=== PATIENT | male | born 1960 | race Caucasian/White ===

== ENCOUNTER 2022-10-28 19:30 | Inpatient (IN) | payer MEDICAID, SELFPAY ==
[2022-10-28] VITALS (10 sets, daily range): BP systolic 150–175; BP diastolic 83–98; PULSE 71–119; RESP 15–26; TEMP 36.9–37.4; O2SAT 75–94; BMI 29.2; BMI 30.1
--- NOTE | 2022-10-28 19:43 | XRR_ITS ---
PROCEDURE INFORMATION: Exam: XR Chest Exam date and time: 10/28/2022 7:49 PM Age: 61 years old Clinical indication: Shortness of breath; Additional info: SOB TECHNIQUE: Imaging protocol: Radiologic exam of the chest. Views: 1 view. COMPARISON: No relevant prior studies available. FINDINGS: Lungs: Hazy asymmetric right upper lobe airspace opacification. Diffuse reticular changes of pulmonary interstitium with generalized prominence. Pleural spaces: Unremarkable. No pleural effusion. No pneumothorax. Heart/Mediastinum: Unremarkable. No cardiomegaly. Bones/joints: Unremarkable. XR/XR chest 1V portable [id number] IMPRESSION: Right upper lobe airspace disease suspicious for bronchopneumonia. Radiographic follow-up recommended.
--- NOTE | 2022-10-28 19:47 | W.ED.SOB ---
HPI - SOB/Dyspnea General: Chief Complaint: Shortness of Breath/Dyspnea Stated Complaint: SOB\High Blood Pressure Time Seen by Provider: 10/28/22 19:40 Source: patient Mode of arrival: ambulatory Limitations: no limitations History of Present Illness: HPI Narrative: 61-year-old male states that he has been having cough congestion low-grade fevers and shortness of breath over the last 4 days he states he thought he may have the flu he states today his dyspnea is worsened patient's pulse ox is 75% here on room air no history of lung issues is a longtime smoker he denies any chest pain denies any vomiting or diarrhea. Associated symptoms: Deny abdominal pain, chest pain, fever(s), nausea or vomiting Review of Systems Const: Denies: fever(s), chills, body aches or change in appetite Eyes: Denies: blurry vision or eye discomfort ENMT: Denies: throat pain or dental pain Card: Denies: chest pain Resp: Reports: dyspnea and non-productive cough GI: Denies: abdominal pain, nausea, vomiting or diarrhea : Denies: dysuria Musc: Denies: neck pain or back pain Skin/Breast: Denies: rash Neuro: Denies: headache(s) Psych: Denies: depression Monroe/Lymph: Denies: easy bruising All/Imm: Denies: urticaria PFSH ED PFSH: Medical History (Updated 10/28/22 @ 21:20 by Christopher Brock MD) No pertinent past medical history Social History (Updated 10/28/22 @ 19:47 by Christopher Brock MD) Smoking and tobacco status: current every day smoker Physical Exam Const: COMMON NORMALS: patient oriented x3 GENERAL APPEARANCE: in distress HENMT: COMMON NORMALS: normocephalic and atraumatic HEAD & SCALP: normocephalic and atraumatic Eye: COMMON NORMALS: Equal, round and reactive pupils present and EOMs intact bilaterally PUPIL: Yes Equal, round and reactive pupils present Neck/C-Spine: COMMON NORMALS: full ROM and supple Chest: COMMONS NORMALS: normal inspection of the chest and normal palpation of entire chest wall Resp: COMMON NORMALS: No retractions and No use of accessory muscles EFFORT & INSPECTION: Yes respiratory distress AUSCULTATION: crackles Cardio: COMMON NORMALS: regular rate, regular rhythm and No murmurs present (Cardio) RATE: regular rate RHYTHM: regular rhythm GI: COMMON NORMALS: Normal to inspection, nondistended, normoactive bowel sounds present, Soft to palpation, non-tender and no masses PALPATION: Yes Soft to palpation Extremity: COMMON NORMALS: normal to inspection and full ROM Neuro: COMMON NORMALS: patient oriented x3, moves all extremities and no focal motor deficits Psych: COMMON NORMALS: mental status grossly normal, Normal thought process present and cooperative THOUGHT PROCESS: Normal thought process present Skin: COMMON NORMALS: no rashes or lesions noted and no wounds GENERAL SKIN EXAM: no rashes or lesions noted Course Vital Signs: Vital signs: Vital Signs Temperature 99.3 F 10/28/22 19:38 Pulse Rate 71 10/28/22 20:41 Respiratory Rate 19 H 10/28/22 20:41 Blood Pressure 150/83 10/28/22 20:41 Pulse Oximetry 91 10/28/22 20:41 Oxygen Delivery Me thod 10/28/22 20:41 Oxygen Flow Rate 4 10/28/22 20:41 MDM - SOB/Dyspnea Medical Decision Making Patient presents here with a right upper lobe pneumonia along with hypoxia he has no signs of sepsis spoke to hospitalist will start on antibiotics admitted this time. Lab Data 10/28/22 19:50 10/28/22 19:50 Labs/Radiology: Radiology Impressions Chest X-Ray 10/28/22 19:43 IMPRESSION: Right upper lobe airspace disease suspicious for bronchopneumonia. Radiographic follow-up recommended. Laboratory Results WBC 10.0 10^3/uL (4.0-10.0) 10/28/22 19:50 RBC 4.63 10^6/uL (4.1-5.3) 10/28/22 19:50 Hgb 14.9 g/dL (11.7-16.6) 10/28/22 19:50 Hct 43.5 % (42.0-52.0) 10/28/22 19:50 MCV 94.0 fl (80-94) 10/28/22 19:50 MCH 32.2 pg (28.0-34.0) 10/28/22 19:50 MCHC 34.3 g/dL (30.0-36.0) 10/28/22 19:50 RDW 13.6 % (12.1-15.1) 10/28/22 19:50 Plt Count 235 10^3/cmm (130-400) 10/28/22 19:50 MPV 11.0 fL (7.4-10.4) H 10/28/22 19:50 Neut % (Auto) 64.0 % 10/28/22 19:50 Lymph % (Auto) 18.0 % 10/28/22 19:50 [place] % (Auto) 16.0 % 10/28/22 19:50 Eos % (Auto) 0.2 % 10/28/22 19:50 Baso % (Auto) 0.7 % 10/28/22 19:50 Neut # (Auto) 6.41 10^3/uL (1.8-7.7) 10/28/22 19:50 Lymph # (Auto) 1.8 10^3/uL (0.8-4.8) 10/28/22 19:50 [place] # (Auto) 1.6 10^3/uL (0.2-0.9) H 10/28/22 19:50 Eos # (Auto) 0.0 10^3/uL (0.0-0.8) 10/28/22 19:50 Baso # (Auto) 0.1 10^3/uL (0.0-0.1) 10/28/22 19:50 Nucleated RBC % (auto) 0 % 10/28/22 19:50 Nucleated RBCs # 0.0 /100WBC 10/28/22 19:50 PT 13.70 SECONDS (12.1-14.9) 10/28/22 19:50 INR 1.02 (0.8-1.2) 10/28/22 19:50 Sodium 133 mmol/L (136-145) L 10/28/22 19:50 Potassium 3.4 mmol/L (3.5-5.1) L 10/28/22 19:50 Chloride 89 mmol/L (98-107) L 10/28/22 19:50 Carbon Dioxide 32 mmol/L (22-29) H 10/28/22 19:50 Anion Gap 15.4 (5-19) 10/28/22 19:50 BUN 21 mg/dL (8-23) 10/28/22 19:50 Creatinine 0.9 mg/dL (0.7-1.2) 10/28/22 19:50 GFR Calculation 86.1 mL/min (90-130) L 10/28/22 19:50 Glucose 121 mg/dL (65-115) H 10/28/22 19:50 Calculated Osmolality 280 mOsm/kg (285-295) L 10/28/22 19:50 Calcium 9.5 mg/dL (8.5-10.5) 10/28/22 19:50 Total Bilirubin 1.2 mg/dL (0.15-1.2) 10/28/22 19:50 AST 115 U/L (0-40) H 10/28/22 19:50 ALT 123 U/L (0-41) H 10/28/22 19:50 Alkaline Phosphatase 112 U/L (40-130) 10/28/22 19:50 NT-Pro-B Natriuret Pep 99 pg/mL (0-125) 10/28/22 19:50 Total Protein 8.0 g/dL (6.6-8.7) 10/28/22 19:50 Albumin 3.8 g/dL (3.5-5.2) 10/28/22 19:50 Globulin 4.2 g/dL (1.3-4.6) 10/28/22 19:50 Influenza Type A Ag Negative (Negative) 10/28/22 19:55 Influenza Type B Ag Negative (Negative) 10/28/22 19:55 SARS-CoV-2 Ag (Rapid) negative (Negative) 10/28/22 19:55 Discharge Plan Discharge Patient Disposition: Admitted As Inpatient Clinical Impression: Community acquired pneumonia, Respiratory failure with hypoxia Coding Level of 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
[2022-10-28 20:08] LABS: Basophils # 0.1 10^3/uL (0.0-0.1); Basophils % 0.7 %; Eosinophils % 0.2 %; Hematocrit 43.5 % (42.0-52.0); Hemoglobin 14.9 g/dL (11.7-16.6); Lymphocytes # 1.8 10^3/uL (0.8-4.8); Mean Corpuscular HGB Conc 34.3 g/dL (30.0-36.0); Mean Corpuscular Hemoglobin 32.2 pg (28.0-34.0); Monocytes # 1.6 10^3/uL (0.2-0.9); Neutrophils # 6.41 10^3/uL (1.8-7.7); Nucleated Red Blood Cells % 0 %; Platelet Count 235 10^3/cmm (130-400); Red Blood Count 4.63 10^6/uL (4.1-5.3); Red Cell Distribution Width 13.6 % (12.1-15.1)
[2022-10-28] MEDS: ipratropium-albuterol 3 mL Neb INHALATION (20:11)
[2022-10-28 20:21] LABS: INR 1.02 (0.8-1.2)
[2022-10-28] MEDS: cefTRIAXone 1,000 MG in sodium chloride 0.9% (plus) 50 ML 100 MG IV (20:24)
--- NOTE | 2022-10-28 20:24 | PC.NURSE ---
blood cultures x2 drawn prior to ABX start
[2022-10-28 20:25] LABS: SARS Covid-2 Antigen negative (Negative)
[2022-10-28] MEDS: azithromycin 500 MG in sodium chloride 0.9% 250 ML 250 MG IV (20:25)
[2022-10-28 20:36] LABS: Alanine Aminotransferase 123 U/L (0-41); Albumin Level 3.8 g/dL (3.5-5.2); Alkaline Phosphatase 112 U/L (40-130); Anion Gap 15.4 (5-19); Aspartate Amino Transferase 115 U/L (0-40); Blood Urea Nitrogen 21 mg/dL (8-23); Calcium 9.5 mg/dL (8.5-10.5); Carbon Dioxide 32 mmol/L (22-29); Chloride 89 mmol/L (98-107); Creatinine Clr Calc Pharmacy 102.8168; Globulin 4.2 g/dL (1.3-4.6); Glomerular Filtration Rate 86.1 mL/min (90-130); Glucose 121 mg/dL (65-115); NT Pro B Type Natriuretic Pept 99 pg/mL (0-125); Osmolality Calculated 280 mOsm/kg (285-295); Potassium 3.4 mmol/L (3.5-5.1); Sodium 133 mmol/L (136-145); Total Bilirubin 1.2 mg/dL (0.15-1.2)
[2022-10-28 20:42] LABS: Influenza A by IFA Negative (Negative); Influenza B by IFA Negative (Negative)
[2022-10-28] MEDS: morphine 4 mg/mL SDV 1 mL IVP (21:31)
[2022-10-28] MEDS: ondansetron 2 mg/ML SDV 2 mL 4 MG IVP (21:31)
--- NOTE | 2022-10-28 21:39 | P.HP_ITS ---
Providers/Chief Complaint Admitting Physician: Dm Horner MD Chief Complaint: SOB\High Blood Pressure History of Present Illness Benton Webb is a 61 year old male who does not have any medical history other than hypertension, takes amlodipine and lisinopril, presented with chief plaint of worsening of shortness of breath. For last 1 week he has been experience generalized weakness, fatigue, shortness of breath, sputum production with cough, he is not vaccinated for flu or COVID-19. He has not noticed any chest pain, or vomiting. He is endorsing nausea, lack of appetite, malaise. Patient is stating that he has been bedbound for the last 7 days and he has not eaten very well. T-max 101. His is also experiencing similar symptoms. In the ER chest x-ray showed right upper lobe pneumonia, he is sensate cardiac, clinically dehydrated I have requested D-dimer which came back high Will request CTA chest rule out PE He has been given azithromycin and ceftriaxone Currently requiring 4 L of oxygen which is new requirement for him He smokes 2 packs of cigarettes every day no use of alcohol on daily basis COVID antigen negative I would like to request PCR Review of Systems Const: Reports: fever(s), chills, body aches and fatigue Eyes: Denies: change in vision ENMT: Denies: throat pain Card: Denies: chest pain Resp: Reports: dyspnea and productive cough GI: Denies: abdominal pain : Denies: flank pain Musc: Denies: neck pain Skin/Breast: Denies: rash Neuro: Reports: headache(s) Psych: Reports: anxiety Endo: Denies: polyuria Monroe/Lymph: Denies: easy bruising All/Imm: Denies: urticaria Medications/Allergies Allergies Allergy/AdvReac Type Severity Reaction Status Date / Time No Known Allergies Allergy Verified 10/28/22 19:37 PFSH Acute PFSH: Medical History Hypertension No pertinent past medical history Surgical History History of skin surgery Family History Denies family history of CAD (coronary artery disease) Social History Smoking and tobacco status: current every day smoker Vitals/I&O/Wt Last Vital Signs Temp 99.3 F 10/28/22 19:38 Pulse 110 H 10/28/22 21:32 Resp 20 H 10/28/22 21:32 BP 160/94 10/28/22 21:32 Pulse Ox 94 10/28/22 21:32 O2 Del Method 10/28/22 21:32 O2 Flow Rate 4 10/28/22 21:32 10/28/22 10/28/22 10/28/22 06:59 14:59 22:59 Intake Total 300 / 300 Balance 300 / 300 Weight last 48 hrs Weight 95.254 kg Physical Exam Narrative: Pleasant cooperative male Currently on 4 L of oxygen No acute respiratory distress Bilateral breath sounds with rhonchi No active wheezing S1, S2 sinus tachycardia Clinically dehydrated Abdomen soft No signs of edema Nonfocal neuro exam Pleasant and cooperative Data 10/28/22 19:50 10/28/22 19:50 Micro: Microbiology 10/28/22 20:06 Blood Culture - Preliminary Blood SPECIMEN COLLECTED 10/28/22 19:50 Blood Culture - Preliminary Blood SPECIMEN COLLECTED A&P Assessment and plan (1) Community acquired pneumonia: (2) Respiratory failure with hypoxia: Plan Community-acquired pneumonia No signs of sepsis Tachycardia noted high D-dimer Requested CTA chest rule out PE Start ceftriaxone azithromycin Most likely patient has underlying COPD we will follow-up with CT results Will need outpatient pulmonary follow-up Smokes 2 packs of cigarettes every day I would request COVID PCR, viral antigen panel is negative Lack of appetite, hyponatremia, hypokalemia, will give gentle fluid hydration Cardiac diet History of hypertension we will add amlodipine to lisinopril Full code DVT prophylaxis Lovenox Attestations Medical Necessity Statement*: Anticipating more than 2 midnights for management of hypoxia related to pneumonia Time Spent in Patient Care: 40 Coding Level of 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
[2022-10-28 22:13] LABS: D Dimer 3.69 ug/mIFEU (0-0.59)
--- NOTE | 2022-10-28 22:58 | CTR_ITS ---
PROCEDURE INFORMATION: Exam: CTA Chest With Contrast Exam date and time: 10/29/2022 12:15 AM Age: 61 years old Clinical indication: Abnormal findings; Abnormal diagnostic tests; Elevated d-dimer; Cough and shortness of breath; Patient HX: Cough with SOB. Elevated d dimer. ; Additional info: Pe TECHNIQUE: Imaging protocol: Computed tomographic angiography of the chest with contrast. 3D rendering (Not supervised by radiologist): MIP and/or 3D reconstructed images were created by the technologist. Radiation optimization: All CT scans at this facility use at least one of these dose optimization techniques: automated exposure control; mA and/or kV adjustment per patient size (includes targeted exams where dose is matched to clinical indication); or iterative reconstruction. Contrast material: OMNI 350; Contrast volume: 175 ml; Contrast route: INTRAVENOUS (IV); COMPARISON: CR (CHEST, ) 10/28/2022 7:49 PM RADIATION DOSE METRICS: Total DLP (mGy-cm): 888.35 FINDINGS: Pulmonary arteries: Normal. No pulmonary emboli. Aorta: Unremarkable. No aortic aneurysm. No aortic dissection. Lungs: Scattered patchy ground-glass attenuation changes of the lung parenchyma bilaterally with right upper lobe predominance. Scattered tree-in-bud tiny pulmonary nodular opacities widely distributed in both lungs. Mild severity centrilobular emphysema. No central airway obstruction. Mild diffuse bronchial wall thickening. No peripheral honeycombing. Pleural spaces: Unremarkable. No pneumothorax. No pleural effusion. Heart: Unremarkable. No cardiomegaly. No pericardial effusion. Mediastinal space: Unremarkable thoracic esophagus. Lymph nodes: Increase number of shotty lymph nodes throughout the mediastinum. Liver: Small low-attenuation circumscribed liver lesion in the right hepatic dome measures 8 mm. Additional 12 mm low-attenuation lesion in the central right hepatic lobe. Benign cysts are favored. Bones/joints: Unremarkable. No acute fracture. Soft tissues: Unremarkable. CT/CT angio chest PE protcl [id number] IMPRESSION: 1. Nonspecific multifocal pneumonia changes throughout the lungs. 2. Negative for pulmonary embolism.
[2022-10-28] MEDS: enoxaparin 40 mg/0.4 mL Syringe SUBCUT (23:00)
[2022-10-28 23:02] LABS: Estmated Average Glucose 148; Hemoglobin A1C 6.8 % (4.0-6.0)
[2022-10-28] MEDS: amlodipine 10 mg Tablet PO (23:17)
[2022-10-28] MEDS: sodium chlor 0.9% + KCl 20 mEq 20 MEQ/1,000 ML BAG 75 MEQ IV (23:17)
[2022-10-28] MEDS: morphine IR 15 mg Tablet PO (23:54)
[2022-10-29] VITALS (9 sets, daily range): BP systolic 123–149; BP diastolic 67–84; PULSE 66–95; RESP 15–20; TEMP 36.6–36.8; O2SAT 94–97
[2022-10-29] MEDS: iohexol 350 mg/mL 500 mL Btl (per mL) IV (00:34)
[2022-10-29 04:12] LABS: Anion Gap 14.5 (5-19); Blood Urea Nitrogen 19 mg/dL (8-23); Calcium 8.9 mg/dL (8.5-10.5); Carbon Dioxide 29 mmol/L (22-29); Chloride 89 mmol/L (98-107); Glomerular Filtration Rate 137.4 mL/min (90-130); Glucose 184 mg/dL (65-115); Magnesium 2.3 mg/dL (1.7-2.3); Osmolality Calculated 275 mOsm/kg (285-295); Phosphorus 3.3 mg/dL (2.5-4.5); Potassium 3.5 mmol/L (3.5-5.1); Sodium 129 mmol/L (136-145)
[2022-10-29 04:19] LABS: Creatinine Clr Calc Pharmacy 151.6911
[2022-10-29 04:29] LABS: Basophils % 0.4 %; Eosinophils % 0.1 %; Hematocrit 39.3 % (42.0-52.0); Hemoglobin 13.3 g/dL (11.7-16.6); Lymphocytes # 1.1 10^3/uL (0.8-4.8); Mean Corpuscular HGB Conc 33.8 g/dL (30.0-36.0); Mean Corpuscular Hemoglobin 31.7 pg (28.0-34.0); Mean Corpuscular Volume 93.6 fl (80-94); Mean Platelet Volume 11.8 fL (7.4-10.4); Monocytes # 0.5 10^3/uL (0.2-0.9); Monocytes % 5.1 %; Neutrophils # 7.44 10^3/uL (1.8-7.7); Neutrophils % 80.8 %; Nucleated Red Blood Cells % 0 %; Platelet Count 218 10^3/cmm (130-400); Red Cell Distribution Width 13.6 % (12.1-15.1); White Blood Count 9.2 10^3/uL (4.0-10.0)
--- NOTE | 2022-10-29 05:50 | PC.NURSE ---
18G IV to R AC infiltrated at this time. IV catheter removed w/tip intact and pressure drsg applied. 22G IV started to right hand x 1 attempt, successful, good blood return noted, and flushes w/ease. IV fluids restarted.
[2022-10-29 06:04] LABS: Vitamin B12 1011 pg/mL (232-1245)
[2022-10-29 06:05] LABS: Slide Review Slide Review Perform
[2022-10-29] MEDS: azithromycin 250 mg Tablet 500 MG PO (08:28)
[2022-10-29] MEDS: lisinopril 20 mg Tablet PO (08:28)
[2022-10-29] MEDS: sennosides-docusate Tablet 1 TAB PO (08:28)
[2022-10-29] MEDS: amlodipine 10 mg Tablet PO (08:28)
[2022-10-29] MEDS: morphine IR 15 mg Tablet PO ×2 (11:14→20:58)
[2022-10-29] MEDS: sodium chlor 0.9% + KCl 20 mEq 20 MEQ/1,000 ML BAG 75 MEQ IV (14:40)
--- NOTE | 2022-10-29 15:17 | P.PN_ITS ---
Subjective Subjective: Overnight labs and H&P reviewed. Patient is currently on 4 L/min supplemental oxygen saturating 95%. Room air as noted on patient's chart is an error. States that his dyspnea is slightly improved this morning. He has been afebrile. Medications: Reviewed: Yes Vitals/I&O/Wt Last Vital Signs Temp 98.0 F 10/29/22 12:00 Pulse 66 10/29/22 12:00 Resp 16 10/29/22 12:00 BP 128/71 10/29/22 12:00 Pulse Ox 95 10/29/22 12:00 O2 Del Method 10/29/22 12:00 O2 Flow Rate 2 10/29/22 08:00 10/29/22 10/29/22 10/29/22 06:59 14:59 22:59 Intake Total 240 / 240 Output Total 150 / 150 Balance -150 / 150 240 / 240 Weight last 48 hrs Weight 95.283 kg Weight 95.254 kg Physical Exam Narrative: General: No acute distress, AO x3 HEENT: PERRLA, pupils bilaterally equal and reactive, pallors not present Chest: Normal vesicular breath sounds, no added sounds, equal good air entry bilaterally CVS: S1-S2 regular, no murmurs, no tachycardia, no gallops, no rubs Abdomen: Soft, nontender, no organomegaly, bowel sounds present Neuro: No focal deficits, no facial deformity, AO x3, power 5/5 in all limbs Extremities: no edema, clubbing, cyanosis or rash Data 10/29/22 02:36 10/29/22 02:36 Micro: Microbiology 10/28/22 22:42 MRSA Culture - Final Nose 10/29/22 01:17 Gram Stain - Final Sputum - Expectorated Sputum 10/29/22 01:17 Bacterial Antigens - Final Urine,Clean Catch 10/28/22 20:06 Blood Culture - Preliminary Blood SPECIMEN COLLECTED 10/28/22 19:50 Blood Culture - Preliminary Blood SPECIMEN COLLECTED A&P Assessment and plan (1) Community acquired pneumonia: (2) Respiratory failure with hypoxia: Plan Community-acquired pneumonia CTA negative for PE, shows B/L multifocal pneumonia Continue ceftriaxone and azithromycin pending COVID PCR, influenza Ag negative Negative urine bacterial antigen. Pending sputum culture and gram stain, negative MRSA PCR. 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
[2022-10-29 17:21] LABS: Adenovirus Not Detected (NOT DETECT); Chlamydia Pneumoniae Not Detected (NOT DETECT); Coronavirus 229E,HKU1,NL63,OC4 Not Detected (NOT DETECT); Human Metapneumovirus Not Detected (NOT DETECT); Human Rhinovirus/Enterovirus Not Detected (NOT DETECT); Influenza A Detected (NOT DETECT); Influenza A H1 Not Detected (NOT DETECT); Influenza A H1-2009 Detected (NOT DETECT); Influenza A H3 Not Detected (NOT DETECT); Influenza B Not Detected (NOT DETECT); Mycoplasma Pneumoniae Not Detected (NOT DETECT); Parainfluenza Virus Type 1 Not Detected (NOT DETECT); Parainfluenza Virus Type 2 Not Detected (NOT DETECT); Parainfluenza Virus Type 3 Not Detected (NOT DETECT); Parainfluenza Virus Type 4 Not Detected (NOT DETECT); Respiratory Syncytial Virus A Not Detected (NOT DETECT); Respiratory Syncytial Virus B Not Detected (NOT DETECT); SARS-COV-2 Not Detected (NOT DETECT)
[2022-10-29] MEDS: cefTRIAXone 1,000 MG in sodium chloride 0.9% (plus) 50 ML 100 MG IV (20:00)
[2022-10-29] MEDS: enoxaparin 40 mg/0.4 mL Syringe SUBCUT (23:04)
[2022-10-30] VITALS (9 sets, daily range): BP systolic 126–168; BP diastolic 71–94; PULSE 81–103; RESP 15–20; TEMP 36.3–36.8; O2SAT 91–97
[2022-10-30] MEDS: sodium chlor 0.9% + KCl 20 mEq 20 MEQ/1,000 ML BAG 75 MEQ IV (01:35)
[2022-10-30] MEDS: morphine IR 15 mg Tablet PO (03:01)
[2022-10-30] MEDS: amlodipine 10 mg Tablet PO (09:33)
[2022-10-30] MEDS: sennosides-docusate Tablet 1 TAB PO (09:33)
[2022-10-30] MEDS: lisinopril 20 mg Tablet PO (09:33)
[2022-10-30] MEDS: azithromycin 250 mg Tablet 500 MG PO (09:33)
--- NOTE | 2022-10-30 14:43 | P.PN_ITS ---
Subjective Subjective: Patient noted to have wheezing today. This morning he was attempted to be weaned down to 2 L/min, however desaturated in the low 80s so had to be placed back on 40 L/min supplemental O2. He is not feeling any better, more tired today. Influenza A PCR returned positive yesterday. Medications: Reviewed: Yes Vitals/I&O/Wt Last Vital Signs Temp 97.3 F L 10/30/22 12:00 Pulse 103 H 10/30/22 12:00 Resp 16 10/30/22 12:00 BP 139/83 10/30/22 12:00 Pulse Ox 94 10/30/22 12:00 O2 Del Method 10/30/22 12:00 O2 Flow Rate 4 10/30/22 08:00 10/29/22 10/30/22 10/30/22 22:59 06:59 14:59 Intake Total 390 / 1630 1178.75 / 2808.75 530 / 530 Output Total 700 / 700 650 / 1350 Balance -310 / 930 528.75 / 1458.75 530 / 530 Weight last 48 hrs Weight 95.283 kg Weight 95.254 kg Physical Exam Narrative: General: No acute distress, AO x3 HEENT: PERRLA, pupils bilaterally equal and reactive, pallors not present Chest: Wheezing to auscultation bilaterally all areas CVS: S1-S2 regular, no murmurs, no tachycardia, no gallops, no rubs Abdomen: Soft, nontender, no organomegaly, bowel sounds present Neuro: No focal deficits, no facial deformity, AO x3, power 5/5 in all limbs Data 10/29/22 02:36 10/29/22 02:36 Micro: Microbiology 10/28/22 20:06 Blood Culture - Preliminary Blood NEGATIVE TO DATE 10/28/22 19:50 Blood Culture - Preliminary Blood NEGATIVE TO DATE 10/28/22 22:42 MRSA Culture - Final Nose A&P Assessment and plan (1) Community acquired pneumonia: (2) Respiratory failure with hypoxia: (3) Influenza A with pneumonia: Plan Patient presenting with complaints of fever chills shortness of breath found to have influenza A pneumonia. CTA negative for PE, shows B/L multifocal pneumonia Started on Tamiflu 75 mg p.o. twice daily today Cannot rule out the possibility of superadded infection Continue ceftriaxone and azithromycin Negative urine bacterial antigen. Pending sputum culture and gram stain, negative MRSA PCR. Blood cx pending, negative so far Lack of appetite, hyponatremia, hypokalemia, discontinue IV fluids today as concern for fluid overload. Recheck sodium with a.m. labs. Encourage p.o. intake Cardiac diet Bilateral wheezing on exam today, likely also with bronchitis. Start scheduled nebulization with DuoNeb, add budesonide inhalation. Short course of methylprednisolone 40 mg IV every 12 hours. Blood pressure currently well controlled Full code DVT prophylaxis Lovenox Attestations Medical Necessity Statement*: Influenza A pneumonia, possibility of superadded bacterial infection, IV antibiotics, close monitoring of respiratory status. 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
[2022-10-30] MEDS: ipratropium-albuterol 3 mL Neb INHALATION ×2 (16:19→20:31)
[2022-10-30] MEDS: oseltamivir phosphate 75 mg Capsule PO (18:13)
[2022-10-30] MEDS: cefTRIAXone 1,000 MG in sodium chloride 0.9% (plus) 50 ML 100 MG IV (20:03)
[2022-10-30] MEDS: budesonide 0.5 mg/2 mL Neb INHALATION (20:31)
[2022-10-30] MEDS: acetaminophen 500 mg Tablet PO (20:46)
[2022-10-30] MEDS: enoxaparin 40 mg/0.4 mL Syringe SUBCUT (23:12)
[2022-10-31] VITALS (11 sets, daily range): BP systolic 153–175; BP diastolic 86–97; PULSE 80–93; RESP 16–21; TEMP 36.3–36.6; O2SAT 90–98
[2022-10-31] MEDS: acetaminophen 500 mg Tablet PO (01:39)
[2022-10-31] MEDS: ipratropium-albuterol 3 mL Neb INHALATION ×3 (02:54→08:40)
[2022-10-31 05:02] LABS: Alanine Aminotransferase 276 U/L (0-41); Albumin Level 3.4 g/dL (3.5-5.2); Alkaline Phosphatase 106 U/L (40-130); Anion Gap 14.6 (5-19); Aspartate Amino Transferase 104 U/L (0-40); Blood Urea Nitrogen 14 mg/dL (8-23); Calcium 9.2 mg/dL (8.5-10.5); Carbon Dioxide 32 mmol/L (22-29); Chloride 94 mmol/L (98-107); Globulin 3.7 g/dL (1.3-4.6); Glucose 219 mg/dL (65-115); Osmolality Calculated 291 mOsm/kg (285-295); Potassium 3.6 mmol/L (3.5-5.1); Sodium 137 mmol/L (136-145); Total Bilirubin 0.3 mg/dL (0.15-1.2); Total Protein 7.1 g/dL (6.6-8.7)
[2022-10-31 05:13] LABS: Basophils % 0.3 %; Eosinophils % 0.1 %; Hematocrit 40.4 % (42.0-52.0); Hemoglobin 13.4 g/dL (11.7-16.6); Lymphocytes # 1.7 10^3/uL (0.8-4.8); Mean Corpuscular HGB Conc 33.2 g/dL (30.0-36.0); Mean Corpuscular Hemoglobin 32.1 pg (28.0-34.0); Mean Corpuscular Volume 96.7 fl (80-94); Mean Platelet Volume 11.5 fL (7.4-10.4); Monocytes # 0.6 10^3/uL (0.2-0.9); Monocytes % 4.6 %; Neutrophils # 9.71 10^3/uL (1.8-7.7); Neutrophils % 75.3 %; Nucleated Red Blood Cells % 0 %; Platelet Count 352 10^3/cmm (130-400); Red Blood Count 4.18 10^6/uL (4.1-5.3); Red Cell Distribution Width 13.5 % (12.1-15.1); White Blood Count 12.9 10^3/uL (4.0-10.0)
[2022-10-31] MEDS: lisinopril 20 mg Tablet PO (08:36)
[2022-10-31] MEDS: amlodipine 10 mg Tablet PO (08:36)
[2022-10-31] MEDS: oseltamivir phosphate 75 mg Capsule PO (08:37)
[2022-10-31] MEDS: azithromycin 250 mg Tablet 500 MG PO (08:37)
[2022-10-31] MEDS: sennosides-docusate Tablet 1 TAB PO (08:37)
[2022-10-31] MEDS: budesonide 0.5 mg/2 mL Neb INHALATION (08:40)
--- NOTE | 2022-10-31 13:23 | P.DS_ITS ---
Discharge Providers Date of Admission: 10/28/22 21:22 Date of Discharge: October 31, 2022 Attending Provider at Admission: Dm Horner MD Attending Provider at Discharge: Jena Banerjee MD Diagnoses at Discharge Discharge Diagnosis (1) Community acquired pneumonia: Status: Acute (2) Respiratory failure with hypoxia: Status: Acute (3) Influenza A with pneumonia: Status: Acute Reason for Visit Reason for Visit: SOB\High Blood Pressure Brief History: Taken from H&P : Benton Webb is a 61 year old male who does not have any medical history other than hypertension, takes amlodipine and lisinopril, presented with chief plaint of worsening of shortness of breath.? For last 1 week he has been experience generalized weakness, fatigue, shortness of breath, sputum production with cough, he is not vaccinated for flu or COVID-19.? He has not noticed any chest pain, or vomiting.? He is endorsing nausea, lack of appetite, malaise.? Patient is stating that he has been bedbound for the last 7 days and he has not eaten very well.? T-max 101.? His is also experiencing similar symptoms. Hospital Course Hospital Course Patient was admitted to the hospital with an overall impression of community- acquired pneumonia. CTA of his chest was negative for PE but did show bilateral multifocal pneumonia. He was started on ceftriaxone and azithromycin empirically, eventually his influenza A PCR came back positive (initially this was negative). Discharge impression is that of influenza A pneumonia with possibility of superadded bacterial infection. Patient was treated with IV antibiotics, steroids and scheduled nebulization needed to be added as patient developed wheezing on October 30, 2022, likely as a result of bronchitis from his acute viral illness. He did well with these interventions. Initially upon presentation he required 4 L/min supplemental O2. Home O2 evaluation was performed today and patient did not qualify for supplemental O2. His O2 sat remained above 90% on room air both at rest and ambulation. He is feeling symptomatically improved today. Physical Exam Narrative: General: No acute distress, AO x3 HEENT: PERRLA, pupils bilaterally equal and reactive, pallors not present Chest: Normal vesicular breath sounds, no added sounds, equal good air entry bilaterally CVS: S1-S2 regular, no murmurs, no tachycardia, no gallops, no rubs Abdomen: Soft, nontender, no organomegaly, bowel sounds present Neuro: No focal deficits, no facial deformity, AO x3, power 5/5 in all limbs Discharge Data Studies Completed and Pending Completed Studies During Hospitalization Category Date Time Status CTA PE [CT angio chest PE protcl [id number]] Stat Cat Scan 10/28/22 22:58 Completed XR chest 1V portable [id number] Stat Exams 10/28/22 19:43 Completed Pending at discharge Category Date Time Status Blood Culture Stat Lab 10/28/22 20:06 Results Sputum Culture and Gram Stain Stat Lab 10/29/22 01:17 Results Radiology Impressions Chest X-Ray 10/28/22 19:43 IMPRESSION: Right upper lobe airspace disease suspicious for bronchopneumonia. Radiographic follow-up recommended. Chest CTA 10/28/22 22:58 IMPRESSION: 1. Nonspecific multifocal pneumonia changes throughout the lungs. 2. Negative for pulmonary embolism. Laboratory Results WBC 12.9 10^3/uL (4.0-10.0) H 10/31/22 03:19 RBC 4.18 10^6/uL (4.1-5.3) 10/31/22 03:19 Hgb 13.4 g/dL (11.7-16.6) 10/31/22 03:19 Hct 40.4 % (42.0-52.0) L 10/31/22 03:19 MCV 96.7 fl (80-94) H 10/31/22 03:19 MCH 32.1 pg (28.0-34.0) 10/31/22 03:19 MCHC 33.2 g/dL (30.0-36.0) 10/31/22 03:19 RDW 13.5 % (12.1-15.1) 10/31/22 03:19 Plt Count 352 10^3/cmm (130-400) 10/31/22 03:19 MPV 11.5 fL (7.4-10.4) H 10/31/22 03:19 Neut % (Auto) 75.3 % 10/31/22 03:19 Lymph % (Auto) 13.0 % 10/31/22 03:19 [place] % (Auto) 4.6 % 10/31/22 03:19 Eos % (Auto) 0.1 % 10/31/22 03:19 Baso % (Auto) 0.3 % 10/31/22 03:19 Neut # (Auto) 9.71 10^3/uL (1.8-7.7) H 10/31/22 03:19 Lymph # (Auto) 1.7 10^3/uL (0.8-4.8) 10/31/22 03:19 [place] # (Auto) 0.6 10^3/uL (0.2-0.9) 10/31/22 03:19 Eos # (Auto) 0.0 10^3/uL (0.0-0.8) 10/31/22 03:19 Baso # (Auto) 0.0 10^3/uL (0.0-0.1) 10/31/22 03:19 Nucleated RBC % (auto) 0 % 10/31/22 03:19 Nucleated RBCs # 0.0 /100WBC 10/31/22 03:19 PT 13.70 SECONDS (12.1-14.9) 10/28/22 19:50 INR 1.02 (0.8-1.2) 10/28/22 19:50 D-Dimer 3.69 ug/mIFEU (0-0.59) H 10/28/22 19:50 Sodium 137 mmol/L (136-145) 10/31/22 03:19 Potassium 3.6 mmol/L (3.5-5.1) 10/31/22 03:19 Chloride 94 mmol/L (98-107) L 10/31/22 03:19 Carbon Dioxide 32 mmol/L (22-29) H 10/31/22 03:19 Anion Gap 14.6 (5-19) 10/31/22 03:19 BUN 14 mg/dL (8-23) 10/31/22 03:19 Creatinine 0.6 mg/dL (0.7-1.2) L 10/31/22 03:19 GFR Calculation 137.0 mL/min (90-130) H 10/31/22 03:19 Glucose 219 mg/dL (65-115) H 10/31/22 03:19 Estimat Average Glucose 148 10/28/22 19:50 Hemoglobin A1c 6.8 % (4.0-6.0) H 10/28/22 19:50 Calculated Osmolality 291 mOsm/kg (285-295) 10/31/22 03:19 Calcium 9.2 mg/dL (8.5-10.5) 10/31/22 03:19 Phosphorus 3.3 mg/dL (2.5-4.5) 10/29/22 02:36 Magnesium 2.3 mg/dL (1.7-2.3) 10/29/22 02:36 Total Bilirubin 0.3 mg/dL (0.15-1.2) 10/31/22 03:19 AST 104 U/L (0-40) H 10/31/22 03:19 ALT 276 U/L (0-41) H 10/31/22 03:19 Alkaline Phosphatase 106 U/L (40-130) 10/31/22 03:19 NT-Pro-B Natriuret Pep 99 pg/mL (0-125) 10/28/22 19:50 Total Protein 7.1 g/dL (6.6-8.7) 10/31/22 03:19 Albumin 3.4 g/dL (3.5-5.2) L 10/31/22 03:19 Globulin 3.7 g/dL (1.3-4.6) 10/31/22 03:19 Vitamin B12 1011 pg/mL (232-1245) 10/28/22 19:50 Procalcitonin 0.80 ng/mL (0-0.5) H 10/28/22 19:50 Nasal Influ A H1 2008 PCR Detected (NOT DETECT) A 10/28/22 22:42 Adenovirus (PCR) Not detected (NOT DETECT) 10/28/22 22:42 C. pneumoniae DNA (PCR) Not detected (NOT DETECT) 10/28/22 22:42 Coronavirus 229E (PCR) Cancelled 10/28/22 22:42 Coronavirus 229E (PCR) Not detected (NOT DETECT) 10/28/22 22:42 Human Metapneumovir PCR Not detected (NOT DETECT) 10/28/22 22:42 Influenza A (H1) PCR Not detected (NOT DETECT) 10/28/22 22:42 Influenza A (H3) PCR Not detected (NOT DETECT) 10/28/22 22:42 Influenza Type A Ag Negative (Negative) 10/28/22 19:55 Influenza Type A (PCR) Detected (NOT DETECT) A 10/28/22 22:42 Influenza Type B Ag Negative (Negative) 10/28/22 19:55 Influenza Type B (PCR) Not detected (NOT DETECT) 10/28/22 22:42 M. pneumoniae (PCR) Not detected (NOT DETECT) 10/28/22 22:42 Parainfluenza 1 (PCR) Not detected (NOT DETECT) 10/28/22 22:42 Parainfluenza 2 (PCR) Not detected (NOT DETECT) 10/28/22 22:42 Parainfluenza 3 (PCR) Not detected (NOT DETECT) 12 22:42 Parainfluenza 4 (PCR) Not detected (NOT DETECT) 10/28/22 22:42 RSV Type A (PCR) Not detected (NOT DETECT) 10/28/22 22:42 RSV Type B (PCR) Not detected (NOT DETECT) 10/28/22 22:42 Entero/Rhino (PCR) Not detected (NOT DETECT) 10/28/22 22:42 SARS-CoV-2 (PCR) Cancelled 10/28/22 22:42 SARS-CoV-2 (PCR) Not detected (NOT DETECT) 10/28/22 22:42 SARS-CoV-2 Ag (Rapid) negative (Negative) 10/28/22 19:55 Vitals Last Vital Signs Temp 97.3 F L 10/31/22 11:50 Pulse 93 10/31/22 11:50 Resp 16 10/31/22 11:50 BP 175/97 10/31/22 11:50 Pulse Ox 92 10/31/22 11:50 O2 Del Method 10/31/22 11:50 O2 Flow Rate 4 10/31/22 08:00 Discharge Plan Discharge Patient Disposition: Home Condition: Stable Prescriptions: New pantoprazole [Protonix] 40 mg tablet,delayed release (DR/EC) 40 mg PO Q24H 10 Days Qty: 10 0RF oseltamivir 75 mg Capsule 75 mg PO BID 3 Days Qty: 6 0RF fluticasone propion-salmeterol [Advair Diskus] 500-50 mcg/dose blister with device 1 inh inhalation BID Qty: 60 0RF levofloxacin 750 mg tablet 750 mg PO DAILY 5 Days Qty: 5 0RF prednisone 20 mg tablet 40 mg PO DAILY 3 Days Qty: 6 0RF Continued Aspir-81 81 mg Tablet,Delayed Release (Dr/Ec) 81 mg PO QAM Vitamin C 500 mg Tablet 500 mg PO QAM amlodipine 10 mg tablet 10 mg PO QAM fenofibrate nanocrystallized 145 mg tablet 145 mg PO QAM krill oil 500 mg Capsule 500 mg PO QAM Changed lisinopril 2.5 mg tablet 5 mg PO QAM 30 Days Qty: 30 0RF Discharge Orders: Discharge Order (Routine); Ordered 10/31/22 Ordered By: Jena Banerjee Discharge Diet: Usual diet Discharge Activity: Increase activity as tolerated Patient Instructions: Opioid Safety Discharge Attestations Time Spent in Discharge Care*: greater than 30 min Quality Metrics Clinical Quality Measures [ No reported AMI, CVA or VTE this stay] Coding Level of Care Code Acute Chg FW DC note Diagnoses Community acquired pneumonia J18.9 Respiratory failure with hypoxia J96.91 Influenza A with pneumonia J09.X1
--- NOTE | 2022-10-31 16:44 | PC.NURSE ---
Discussed discharge with patient and spouse. Medications and follow up appointments discussed. Verbalized understanding.
== END 2022-10-31 16:05 | disposition home or self-care (01) | DRG 194 ==
LOC: ER 21:20 → MEDSURG 21:23
PROVIDERS: Admitting Provider Internal Medicine; Emergency Provider Emergency Medicine; Visit Provider Student in an Organized Health Care Education/Training Program
DX: J10.00 Influenza due to other identified influenza virus with unspecified type of pneumonia (principal); E87.1 Hypo-osmolality and hyponatremia; J44.0 Chronic obstructive pulmonary disease with (acute) lower respiratory infection; I10 Essential (primary) hypertension; Z79.82 Long term (current) use of aspirin; E86.0 Dehydration; F17.210 Nicotine dependence, cigarettes, uncomplicated; E87.6 Hypokalemia
CPT/HCPCS: 36415; 71045; 71275; 80048; 80053; 82607; 83036; 83735; 83880; 84100; 84145; 85025; 85378; 85610; 86403; 87040; 87070; 87205; 87426; 87449; 87486; 87581; 87633; 87635; 87641; 87804; 94640; 94664; 94760; 96365; 96367; 96372; 96375; 99285; J0456; J0696; J1650; J2270; J2405; J2920; J2930; J3480; J7050; J7626; Q0144; Q9967